=== PATIENT | male | born 1990 | race Caucasian/White ===

== ENCOUNTER 2024-01-07 08:27 | Emergency (ER) | payer SELFPAY ==
--- OUTSIDE RECORDS SUMMARY | 2024-01-07 08:31 | XMS REPORT | Continuity of Care Document ---
Author Name Unknown Address [address] [facility] [address] [place] [address] [facility] thconnect Address [address] [facility] [address] [place] [address] Care Team Providers Care Edge Baster Name Role Phone DILAN SOLIS Primary Care Physician Unavailab shawna SMITH MD Attending Clinician Unavailab PAMELLA Urrutia Attending Clinician Unava ilable LAB90 Attending Clinician Unavailable AMBREEN_FARJDA Attending Clinician Unavailable DILAN SOLIS Attending Clinician Unavailable REMEDIOS ARRIOLA Attending Clinician UnavailREMEDIOS Park Attending Clinician UnavailDilan Shaw Attending Clinician [phone] FELICITAS_F Attending Clinician Unavailable Little Larsen Attending Clinician [phone] LITTLE OHARA Attending Clinician Unavailable Zuniga_S Attending Clinician Unavailable Anh Attending Clinician Unavailable AMBREEN_FARJDA Admitting Clinician Unavailable CHRETIEN_F Admitting Clinician Unavailable LITTLE OHARA Admitting Clinician Unavailable Zuniga_S Admitting Clinician Unavailable Anh Admitting Clinician Unavailable Payers Payer Name Policy Type Policy Number Effective Date Expirati on Date Source [facility] [employer] FOCUS 9 [id number] 2023 00:00:00 [place]HMO[place] [id number] 2022 00:00:00 [employer] [id number] 2022 00:00:00 [facility] [id number] 2021 00:00:00 2022 00:00:00 [facility] [place] [id number] Problems Condition Name Condition Details Condition Category Status Onset Date Resolution Date Last Treatment Date Treating Clinician Comments Source Bipolar disorder (multi HCC) Bipolar disorder (multi HCC) Disease Active 08-16 00:00: 00 Tia Rodriguez - Externa l Encounter to establish care Encounter to establish care Disease Active 11-01 00:00: 00 [facility] Essential hypertensi on Essential hypertensi on Disease Active 11-01 00:00: 00 [facility] Anxiety and depression Anxiety and depression Disease Active 11-01 00:00: 00 [facility] Snoring Snoring Disease Active 11-01 00:00: 00 [facility] Essential hypertensi on Essential Hypertensi on Problem Active 2020-05 00:00: 00 [facility] History and physical examinatio n, pre-employ ment History and Physical Examinatio n, Pre-employ ment Problem Active 2020-05 00:00: 00 [facility] No known active problems No known active problems Disease [facility] Allergies, Adverse Reactions, Alerts Allergy Name Allergy Type Status Severity Reaction(s) Onset Date Inactive Date Treating Clinician Comments Source NO KNOWN ALLERGIE S Drug Class Active [facility] Social History Social Habit Start Date Stop Date Quantity Comments Source Sexual orientation Perry francesco Rodriguez - External History of tobacco use Cigarette Smoker Tia rosenthal - External History of Social function 2023-08-17 00:00:00 2023-08-17 00:00:00 Tia Martino Cigarettes smoked current (pack per day) - Reported 2023-08-17 00:00:00 2023-08-17 00:00:00 Tia Rodriguez - External Tobacco use and exposure 2023-08-17 00:00:00 2023-08-17 00:00:00 Smokeless tobacco non-user Tia Rodriguez - External Alcohol intake 2023-08-17 00:00:00 2023-08-17 00:00:00 Current drinker of alcohol (finding) Tia Rodriguez - External Exposure to SARS-CoV-2 (event) 2021-12-30 00:00:00 2022-01-09 10:04:00 Not sure [facility] Sex Assigned At 1990 00:00:00 1990 00:00:00 Tia Rodriguez - External Smoking Status Start Date Stop Date Source Tobacco smoking consumption unknown [facility] Never Smoker [facility] Smokes tobacco daily 2023-08-17 00:00:00 Tia Rodriguez - External Ex-smoker 2022-11-01 00:00:00 2022-11-01 00:00:00 [facility] Medications Ordered Medication Name Filled Medication Name Start Date Stop Date Current Medication? Ordering Clinician Indication Dosage Frequency Signature (SIG) Comments Components Source Lisinopril 40 MG oral Tablet 08-16 00:00: 00 Yes [id number] 40mg Take 1 tablet (40 mg total) by mouth daily. Tia tucker hydroCHLORO thiazide 12.5 MG oral Capsule 08-16 00:00: 00 08-16 00:00 :00 No [id number] 12.5mg Take 1 capsule (12.5 mg total) by mouth daily. Tia tucker lisinopriL 40 mg tablet 11-01 09:41: 06 11-01 00:00 :00 No 40mg Take 1 tablet by mouth in the morning. [facility] 11-01 09:41: 06 11-01 00:00 :00 No 5mg Take 1 tablet by mouth in the morning. [facility] metoprolol tartrate 25 mg tablet 11-01 09:41: 06 11-01 00:00 :00 No 25mg Take 1 tablet by mouth every 12 (twelve) hours. [facility] buPROPion XL 300 mg 24 hr tablet 11-01 09:41: 06 11-01 00:00 :00 No 300mg Take 1 tablet by mouth in the morning. [facility] amLODIPine 5 mg tablet 11-01 00:00: 00 Yes [id number] 5mg Take 1 tablet by mouth in the morning. [facility] buPROPion XL 300 mg 24 hr tablet 11-01 00:00: 00 Yes [id number] 300mg Take 1 tablet by mouth in the morning. [facility] lisinopriL 40 mg tablet 11-01 00:00: 00 Yes [id number] 40mg Take 1 tablet by mouth in the morning. [facility] metoprolol tartrate 25 mg tablet 11-01 00:00: 00 Yes [id number] 25mg Take 1 tablet by mouth every 12 (twelve) hours. [facility] nitroglycer in (NITROSTAT) sublingual tablet 0.4 mg 01-09 15:30: 00 01-09 15:26 :00 No .4mg 0.4 mg, Sublingual , ONCE, 1 dose, On Sun01/09/22 at 1030, SONAL [facility] lisinopriL 20 mg tablet 01-09 00:00: 00 02-09 04:59 :00 No [id number] 20mg Take 1 tablet by mouth in the morning for 30 days. [facility] ID NOW COVID-19 Test Kit TEST DIRECTED ID NOW COVID-19 Test Kit TEST DIRECTED No ID NOW COVID-19 Test Kit TEST DIRECTED [facility] lisinopril 10 mg tablet Take 1 tablet every day by oral route. lisinopril 10 mg tablet Take 1 tablet every day by oral route. No 1 Q1D lisinopril 10 mg tablet Take 1 tablet every day by oral route. [facility] Vital Signs Vital Name Observation Time Observation Value Comments S saray Systolic blood pressure 2023-08-17 15:12:00 162 mm[Hg] Tia Stoneybo ld - External Diastolic blood pressure 2023-08-17 15:12:00 84 mm[Hg] Tia Stoneybo ld - External Heart rate 2023-08-17 14:40:00 94 /min Kel y Seybold - External Body temperature 2023-08-17 14:40:00 36.67 Aileen Tia Stoneybold - External Respiratory rate 2023-08-17 14:40:00 20 /min Tia Stoneybold - External Body height 2023-08-17 14:40:00 175.3 cm Destiney ey Seybold - External Body weight 2023-08-17 14:40:00 162.388 kg Destiney ey Seybold - External BMI 2023-08-17 14:40:00 52.87 kg/m2 Destiney neto Seybold - External Oxygen saturation in Arterial blood by Pulse oximetry 2023-08-17 14:40:00 97 /min Tia Gonzalezo ld - External Systolic blood pressure 2022-11-01 14:34:00 155 mm[Hg] [facility] Diastolic blood pressure 2022-11-01 14:34:00 84 mm[Hg] [facility] Heart rate 2022-11-01 14:33:00 97 /min [facility] acute hospital Body temperature 2022-11-01 14:33:00 36.56 Aileen [facility] Body height 2022-11-01 14:33:00 172.7 cm [facility] Body weight 2022-11-01 14:33:00 138.347 kg [facility] BMI 2022-11-01 14:33:00 46.38 kg/m2 [facility] Oxygen saturation in Arterial blood by Pulse oximetry 2022-11-01 14:33:00 98 /min [facility] Systolic blood pressure 2022-01-09 18:45:00 170 mm[Hg] [facility] Diastolic blood pressure 2022-01-09 18:45:00 99 mm[Hg] [facility] Respiratory rate 2022-01-09 18:45:00 20 /min [facility] Oxygen saturation in Arterial blood by Pulse oximetry 2022-01-09 18:45:00 97 /min [facility] Heart rate 2022-01-09 17:45:00 89 /min General acute hospital Body temperature 2022-01-09 15:08:00 36.22 Aileen [facility] Body height 2022-01-09 15:08:00 172.7 cm [facility] Body weight 2022-01-09 15:08:00 160.8 kg [facility] BMI 2022-01-09 15:08:00 53.90 kg/m2 [facility] BP Diastolic 2021-04-01 00:00:00 103 mm[Hg] [facility] Height 2021-04-01 00:00:00 68 [in_i] [facility] BMI (Body Mass Index) 2021-04-01 00:00:00 49.8 kg/m2 [facility] BP Systolic 2021-04-01 00:00:00 159 mm[Hg] [facility] Body Weight 2021-04-01 00:00:00 5236 [oz_av] [facility] BP Systolic 2021-03-18 00:00:00 174 mm[Hg] [facility] Body Weight 2021-03-18 00:00:00 5302 [oz_av] [facility] BP Diastolic 2021-03-18 00:00:00 107 mm[Hg] [facility] Height 2021-03-18 00:00:00 68 [in_i] [facility] BMI (Body Mass Index) 2021-03-18 00:00:00 50.4 kg/m2 [facility] Procedures Procedure Date / Time Performed Performing Clinician Source TROPONIN I 2022-01-09 17:36:00 Little Ohara [facility] URINALYSIS 2022-01-09 16:23:00 Little Ohara [facility] XR CHEST 1 VW 2022-01-09 15:27:20 Little Ohara [facility] TROPONIN I 2022-01-09 15:21:00 Little Ohara [facility] COMP. METABOLIC PANEL ([id number]) 2022-01-09 15:21:00 Little Ohara [facility] CBC WITH DIFF 2022-01-09 15:21:00 Little Ohara [facility] GLYCOSYLATED HEMOGLOBIN (A1C) 2022-01-09 15:21:00 Little Ohara [facility] PROTHROMBIN TIME / INR 2022-01-09 15:21:00 Isabel Ohara [facility] N-TERMINAL PRO-BNP 2022-01-09 15:21:00 Janice Ohara [facility] HB ECG ROUTINE & RHYTHM STRIP 2022-01-09 15:12:49 Little Ohara [facility] NOTICE OF PRIVACY PRACTICES 2022-01-09 14:50:36 Doctor Unassigned, [place] [facility] CONSENT/REFUSAL FOR DIAGNOSIS AND TREATMENT 2022-01-09 14:50:11 Doctor Unassigned, [place] [facility] Encounters Start Date/Time End Date/Time Encounter Type Admission Type Attending Clinicians Care Facility Care Department Encounter ID Source 2022-04-14 16:18:47 Inpatient [facility] [id number] [facility] 2024-01-04 00:00:00 2024-01-04 00:00:00 Outpatient MD TIA ZAYAS [id number] [facility] 2023-10-25 00:00:00 2023-10-25 00:00:00 Outpatient PAMELLA ELLIOTT [id number] Tia Rodriguez 2023-08-27 16:30:00 2023-08-27 16:30:00 Outpatient PAMELLA ELLIOTT [id number] Tia Rodriguez 2023-08-17 10:45:00 2023-08-17 10:45:00 Outpatient LAB90 TAI MATHEW [id number] Tia Rodriguez 2023-08-17 10:00:00 2023-08-17 10:00:00 Outpatient PAMELLA ELLIOTT TIA [id number] Tia Jennifer 2023-03-07 00:00:00 2023-03-07 00:00:00 Outpatient DAVID WATSON [facility] [id number] Nannette jean [facility] Program 2023-01-15 09:30:00 2023-01-15 09:30:00 Outpatient DILAN CORRIGAN [facility] [id number] [facility] 2023-01-01 10:30:00 2023-01-01 10:30:00 Outpatient R DILAN SOLIS [facility] [id number] [facility] 2022-11-16 14:30:00 2022-11-16 14:30:00 Outpatient REMEDIOS CONNELLY STRAHIL [facility] [id number] [facility] 2022-11-01 09:00:00 2022-11-01 10:01:19 Outpatient DILAN CORRIGAN [facility] [id number] [facility] 2022-11-01 09:00:00 2022-11-01 10:01:19 Office Visit Dilan Solis [facility] [id number] [facility] 2022-10-25 00:00:00 2022-10-25 00:00:00 Outpatient CHRETIEN_F [facility] [id number] [facility] 2022-01-09 10:10:00 2022-01-09 14:02:00 Emergency Little Ohara [facility] [id number] [facility] 2022-01-09 10:10:00 2022-01-09 14:02:00 Emergency X LITTLE OHARA [facility] ERT [id number] [facility] 2021-04-01 09:42:00 2021-04-01 09:42:00 Outpatient Zuniga_S [facility] [id number] Nannette jean [facility] 2021-04-01 00:00:00 2021-04-01 00:00:00 KRISTA Elizabeth-C: [address] [id number] , Ph. [facility] [id number] [facility] 2021-03-18 09:13:00 2021-03-18 09:13:00 Outpatient Zuniga_S [facility] [id number] [facility] 2021-03-18 00:00:00 2021-03-18 00:00:00 KRISTA Elizabeth-C: [address], [place] [address] , Ph. [facility] [id number] Nannette [facility] 2021-03-10 10:14:00 2021-03-10 10:14:00 Outpatient Zuniga_S [facility] [id number] [facility] 2019-10-23 02:28:00 2019-10-23 02:28:00 Outpatient Anh [facility] [id number] [facility]
[2024-01-07] MEDS ORDERED: IBUPROFEN 400 MG TAB ONE (08:45)
[2024-01-07 09:26] LABS: SARS-CoV-2 Antigen CONTROL BLUE LINE VIS/BG OK; SARS-CoV-2 Antigen Rapid Res Negative (Negative)
--- NOTE | 2024-01-07 09:39 | EDPHYS ---
Physician Documentation [facility] Name: Cedrick Tovar Age: 33 yrs Sex: Male : 1990 Arrival Date: 01/07/2024 Time: 08:27 Bed 7 Private MD: ED Physician Aurelio Silveira HPI: 01/06 08:41 This 33 yrs old Male presents to ER via Ambulatory with complaints of Flu Symptoms. cp 08:41 Onset: The symptoms/episode began/occurred this morning. cp Historical: - Allergies: 08:38 No Known Allergies; rs5 - PMHx: 08:38 Sleep apnea; Hypertensive disorder; Depressive disorder; Anxiety; rs5 - PSHx: 08:38 right eardrum repair; rs5 - Immunization history:: Adult Immunizations up to date. - Infectious Disease History:: Denies. - Social history:: Smoking status: Patient denies any tobacco usage or history of. ROS: 08:45 Constitutional: Positive for body aches, chills, Negative for fever, cp 08:45 Eyes: Negative for injury, pain, redness, and discharge, cp 08:45 ENT: Negative for drainage from ear(s), ear pain, sore throat, difficulty swallowing, difficulty handling secretions, 08:45 Respiratory: Positive for cough, Exam: 09:00 Constitutional: The patient appears in no acute distress, alert, awake, non-toxic, well cp developed, well nourished, obese, uncomfortable, 09:00 Head/Face: Normocephalic, atraumatic. cp 09:00 Eyes: Periorbital structures: appear normal, Conjunctiva: normal, no exudate, no injection, Lids and lashes: appear normal, bilaterally, 09:00 ENT: External ear(s): are unremarkable, Nose: is normal, Mouth: Lips: moist, Posterior pharynx: Airway: no evidence of obstruction, patent, 09:00 Neck: ROM/movement: Meningeal signs: are not present, 09:00 Chest/axilla: Inspection: normal, 09:00 Cardiovascular: Rate: normal, 09:00 Respiratory: the patient does not display signs of respiratory distress, Respirations: normal, no use of accessory muscles, no retractions, labored breathing, is not present, Breath sounds: are clear throughout, no decreased breath sounds, no stridor, no wheezing, 09:00 Abdomen/GI: Exam negative for discomfort, distension, guarding, Inspection: abdomen appears normal, Vital Signs: 08:36 BP 175 / 97; Pulse 90; Resp 19; Temp 98.5; Pulse Ox 98% on R/A; rs5 09:49 BP 151 / 88; Pulse 88; Resp 18; Pulse Ox 98% on R/A; rs5 MDM: 08:34 Patient medically screened. cp 01/06 08:40 Order name: Influenza Screen (a \T\ B); Complete Time: 09:45 cp 01/06 09:45 Interpretation: Reviewed. cp 01/06 08:40 Order name: SARS RAPID; Complete Time: 09:45 cp 01/06 09:45 Interpretation: Reviewed. cp Administered Medications: 08:45 Drug: Ibuprofen PO 800 mg PO once Route: PO; rs5 09:50 Follow up: Response: No adverse reaction; Pain is decreased rs5 Disposition: 09:54 Co-signature as Attending Physician, Aurelio Silveira MD I reviewed the patient's care rn provided by the Advanced Practice Provider and agree with the diagnosis and treatment plan. Disposition Summary: 01/07/24 09:38 Discharge Ordered Notes: Location: Home cp Problem: new cp Symptoms: have improved cp Condition: Stable cp Diagnosis - Viral infection, unspecified cp Followup: cp - With: Private Physician - When: 2 - 3 days - Reason: symptoms continue Discharge Instructions: - Discharge Summary Sheet cp - Viral Illness, Adult cp Forms: - Work release form aa5 - Medication Reconciliation Form cp - Antibiotic Education cp - Prescription Opioid Use cp - Patient Portal Instructions cp - Leadership Thank You Letter cp Prescriptions: - Ibuprofen 800 mg Oral Tablet - take 1 tablet ORAL route every 8 hours As needed take with food; 30 tablet; cp Refills: 0, Product Selection Permitted Signatures: Dispatcher [employer] EDMS Aurelio Silveira MD MD rn Page, Corey, PA PA cp Sotelo, Ricky, RN RN rs5 Corrections: (The following items were deleted from the chart) 08:41 08:41 Influenza Screen (A \T\ B)+BA.LAB.BRZ ordered. EDMS EDMS 08:41 08:41 SARS-COV-2 Antigen Rapid+I.LAB.BRZ ordered. EDMS EDMS
--- NOTE | 2024-01-07 09:39 | ER ---
Nurse's Notes [facility] Name: Cedrick Tovar Age: 33 yrs Sex: Male : 1990 Arrival Date: 01/07/2024 Time: 08:27 Bed 7 Private MD: Diagnosis: Viral infection, unspecified Presentation: 01/06 08:36 Chief complaint: Patient states: Flu like symptoms started this morning. Coronavirus rs5 screen: At this time, the client does not indicate any symptoms associated with coronavirus-19. Ebola Screen: No symptoms or risks identified at this time. Initial Sepsis Screen: Does the patient meet any 2 criteria? No. Patient's initial sepsis screen is negative. Does the patient have a suspected source of infection? No. Patient's initial sepsis screen is negative. Risk Assessment: Do you want to hurt yourself or someone else? Patient reports no desire to harm self or others. Onset of symptoms was January 07, 2024. Care prior to arrival:. 08:36 Method Of Arrival: Ambulatory rs5 08:36 Acuity: JULIENNE 3 rs5 Historical: - Allergies: 08:38 No Known Allergies; rs5 - PMHx: 08:38 Sleep apnea; Hypertensive disorder; Depressive disorder; Anxiety; rs5 - PSHx: 08:38 right eardrum repair; rs5 - Immunization history:: Adult Immunizations up to date. - Infectious Disease History:: Denies. - Social history:: Smoking status: Patient denies any tobacco usage or history of. Screenin:39 [facility] ED Fall Risk Assessment (Adult) History of falling in the last 3 months, rs5 including since admission No falls in past 3 months (0 pts) Confusion or Disorientation No (0 pts) Intoxicated or Sedated No (0 pts) Impaired Gait No (0 pts) Mobility Assist Device Used No (0 pt) Altered Elimination No (0 pt) Score/Fall Risk Level 0 - 2 = Low Risk Oriented to surroundings, Maintained a safe environment. Abuse screen: Denies threats or abuse. Nutritional screening: No deficits noted. Tuberculosis screening: No symptoms or risk factors identified. Assessment: 08:40 General: Appears in no apparent distress. uncomfortable, Behavior is calm, cooperative. rs5 Pain: Complains of pain in generalized body aches Pain currently is 6 out of 10 on a pain scale. Quality of pain is described as aching, Is continuous. Neuro: Level of Consciousness is awake, alert, obeys commands, Oriented to person, place, time, situation. Cardiovascular: Patient's skin is warm and dry. Respiratory: Reports shortness of breath cough that is Airway is patent Respiratory effort is even, unlabored, Respiratory pattern is regular, symmetrical. GI: No signs and/or symptoms were reported involving the gastrointestinal system. : No signs and/or symptoms were reported regarding the genitourinary system. EENT: No signs and/or symptoms were reported regarding the EENT system. Derm: Skin is intact, Skin is pink, warm \T\ dry. Musculoskeletal: Range of motion: intact in all extremities. 09:49 Reassessment: Patient and/or family updated on plan of care and expected duration. Pain rs5 level reassessed. Patient is alert, oriented x 3, equal unlabored respirations, skin warm/dry/pink. Patient states feeling better. Vital Signs: 08:36 BP 175 / 97; Pulse 90; Resp 19; Temp 98.5; Pulse Ox 98% on R/A; rs5 09:49 BP 151 / 88; Pulse 88; Resp 18; Pulse Ox 98% on R/A; rs5 ED Course: 08:29 Patient arrived in ED. mg5 08:31 Cornel Maza PA is PHCP. cp 08:31 Aurelio Silveira MD is Attending Physician. cp 08:32 Mihir Castillo, SANJUANA is Primary Nurse. rs5 08:38 Triage completed. rs5 08:39 Patient has correct armband on for positive identification. Placed in gown. Bed in low rs5 position. Call light in reach. Side rails up X2. 08:39 No provider procedures requiring assistance completed. rs5 09:49 Patient did not have IV access during this emergency room visit. rs5 Administered Medications: 08:45 Drug: Ibuprofen PO 800 mg PO once Route: PO; rs5 09:50 Follow up: Response: No adverse reaction; Pain is decreased rs5 Medication: 09:50 VIS not applicable for this client. rs5 Outcome: 09:38 Discharge ordered by . cp 09:49 Discharged to home ambulatory, rs5 09:49 Condition: stable 09:49 Discharge instructions given to patient, family, Instructed on discharge instructions, follow up and referral plans. medication usage, Demonstrated understanding of instructions, follow-up care, medications, Prescriptions given X 1, 09:50 Patient left the ED. rs5 Signatures: Cornel Maza PA PA cp Sotelo, Ricky, RN RN rs5 Sherri Dyson mg5 Corrections: (The following items were deleted from the chart) 08:42 08:36 Care prior to arrival: Medication(s) given: Tylenol, 2g Tylenol prior to arrival rs5 rs5 08:57 08:40 Pain: Complains of pain in generalized body aches Pain currently is 3 out of 10 rs5 on a pain scale. Quality of pain is described as aching, Is continuous, rs5
[2024-01-07 09:56] VITALS: TEMP 98.5; O2SAT 98
[2024-01-07 09:58] VITALS: BP 151/88
== END 2024-01-07 09:50 | disposition home or self-care (01) ==
LOC: ER 08:27
DX: B34.9 Viral infection, unspecified (principal); Z11.52 Encounter for screening for COVID-19
CPT/HCPCS: 36415; 87804; 87811; 99283